=== PATIENT | female | born 1990 | race Caucasian/White ===

== ENCOUNTER 2019-07-21 22:33 | Emergency (ER) | payer MEDICARE, MEDICAID ==
--- OUTSIDE RECORDS SUMMARY | 2019-07-21 22:48 | XMS REPORT ---
:1990 Author Organization [facility] Care Team Providers Name Role Phone Tin Phillips Unavailable Unavailable PROBLEMS Unknown Problems ALLERGIES No Information ENCOUNTERS Encounter Location Date Diagnosis [address] Jun, [phone] Pending Sale To [facility] [address] [place] [address] Jan, [place] [address] Pending Sale To [facility] [address] [place] [address] Jan, [place] [phone] Dec, [phone] Dec, [phone] Pending Sale To [facility] [address] [place] [address] Oct, [place] [address], Oct, [facility] [phone] [place] Oct, [phone] Oct, [phone] August, [phone] Jul, [phone] May, [phone] Mar, [phone] Mar, [address] IMMUNIZATIONS No Known Immunizations SOCIAL HISTORY Never Assessed REASON FOR REFERRAL FUNCTIONAL STATUS PLAN OF CARE VITAL SIGNS MEDICATIONS Unknown Medications PROCEDURES No Known procedures RESULTS No Results REASON FOR VISIT 1st no show Insurance Providers [facility] Health Member Patient Patient Patient Patient Patient Subscriber Subscriber Subscriber Group Insurance Plan Plan Plan Plan ID Relationship Address Phone Name Date of ID Name Date of No Type Insurance Insurance Insurance Coverage to Subscriber Address Phone Name Dates Blue [phone] Blue self Cheryl [id number] Choice Opt [id number] [address] 83 Choice Opt [place] [id number] Thayer Claims [id number] Thayer Hplex [place] Dept Hplex [place] [facility] [address] Medicare National [phone] Medicare self Cheryl [id number] PPS Government 41 PPS [place] [facility] [address] [facility] [id number] Medicaid [id number] Medicaid self Cheryl [id number] [facility] [address] [place] [address] Blue [id number] Blue self Cheryl [id number] Choice Opt [id number] Choice Opt [place] 1 Medical [facility] Medical [address] Medicaid [id number] Medicaid self Cheryl [id number] Wrap [facility] 56 [address] [place] [address]
--- OUTSIDE RECORDS SUMMARY | 2019-07-21 22:48 | XMS REPORT | Continuity of Care Document ---
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 [phone] Problems Active Problems Provider Date Primigravida Ryanne Avalos CNM Onset: 06/01/2019 Body mass index 40+ - severely obese Ryanne Avalos CNM Onset: 06/01/2019 Social History Type Date Description Comments Sex Unknown Tobacco Use Start: Unknown Never Smoked Cigarettes fiance smokes in their bedroom ETOH Use Denies alcohol use Recreational Drug Use Denies Drug Use Tobacco Use Start: Unknown Patient has never smoked Exercise Type/Frequency Exercises regularly 4-5xwk Seat Belt/Car Seat Always uses seat belt Allergies, Adverse Reactions, Alerts Active Allergies Reaction Severity Comments Date Buspar increase depressive symptoms Moderate 05/06/2019 Wellbutrin suicidal ideation 05/06/2019 Inactive Allergies NKDA 01/14/2017 Medications Active Medications SIG Qnty Indications Ordering Date Provider Loratadine 1 by mouth every 60caps Norma Oliva, 06/21/2019 10mg Capsules day CNM Doxylamine 2 tabs by mouth 60tabs Ryanne Avalos, 05/25/2019 Succinate/Pyridoxine at bedtime. if CNM Hydrochloride symptoms persist 10-10mg add [address] morning and 1 midday. Abilify one by mouth Q hs Unknown 2mg Tablets Omeprazole one by mouth Unknown 40mg Capsules daily DR Immunizations Description No Information Available Vital Signs Date Vital Result Comment 05/25/2019 10:29am BP Systolic 122 mmHg BP Diastolic 80 mmHg Height 63 inches 5'3" Weight 250.00 lb BMI (Body Mass Index) 44.3 kg/m2 1 Parity 0 05/05/2019 8:06am BP Systolic 118 mmHg BP Diastolic 76 mmHg Height 63 inches 5'3" Weight 259.00 lb BMI (Body Mass Index) 45.9 kg/m2 Results Test Acquired Date Facility Test Result H/L Range Note Laboratory test 07/11/2019 [facility] Glucose 1 HR 122 mg/dL Normal 70-160 1 [place] [address] Post Prandial [phone] GC/Chlamydia 07/11/2019 [facility] GCCHL (SEE NOTE) 2 [place] [address] Disclaimer [phone] Chlamydia trachomatis Alley Negative Negative Neisseria gonorrhoeae (GC) Alley Negative Negative PNL No 06/13/2019 [facility] Rubella Screen Immune Immune 3 [place] [address] [phone] Hemoglobin A1c 4.9 % Normal 4.0-5.6 4 Hepatitis B Surface Ag Nonreactive Nonreactive 5 Syphillis Igg W/Reflex RPR Negative Negative 6 CBC With No 06/13/2019 [facility] White Blood 10.6 10^3/uL Normal 3.5-10.8 [place] [address] Count [phone] Red Blood Count 4.31 10^6/uL Normal 3.70-4.87 Hemoglobin 12.3 g/dL Normal 12.0-16.0 Hematocrit 37 % Normal 35-47 Mean Corpuscular Volume 87 fL Normal 80-97 Mean Corpuscular Hemoglobin 29 pg Normal 27-31 Mean Corpuscular HGB Conc 33 g/dL Normal 31-36 Red Cell Distribution Width 16 % High 10-15 Platelet Count 300 10^3/uL Normal 150-450 Mean Platelet Volume 10.1 fL Normal 7.4-10.4 Type And Screen 06/13/2019 [facility] [place] [address] [phone] Patient Blood Type A Negative Lead 06/13/2019 [facility] Lead,Venous, B < 1.0 g/dL 0.0- 4.9 7 [place] [address] [phone] Venous/Capillary Venous Submitting Laboratory Phone [phone] HIV 1&2 p24 06/13/2019 [facility] HIV 4th [place] [address] Generation [phone] Urine Culture 05/25/2019 [facility] Urine SEE RESULT 9 [place] [address] Culture BELOW Sensitivities [phone] Laboratory test 05/05/2019 [facility] Cytology SEE RESULT 10 [place] [address] BELOW [phone] GC/Chlamydia Dna 05/05/2019 [facility] GCCHL (SEE NOTE) 11 [place] [address] Disclaimer [phone] Chlamydia trachomatis Alley Negative Negative Neisseria gonorrhoeae (GC) Alley Negative Negative 1 [id number] 2 As with all diagnostic procedures, the laboratory results obtained should be used in conjunction with other clinical information available to the physician, including confirmation by another method, as applicable. 3 [id number] 4 Therapeutic target for the treatment of diabetes mellitus patients is <7% HBA1C, and in selective patients <6.0%. Please refer to [place] Diabetes Association diabetic care guidelines for further information. 5 [id number] 6 [id number] 7 ADDITIONAL INFORMATION Testing performed by Inductively Coupled Plasma-Mass Spectrometry (ICP-MS). This test was developed and its performance characteristics determined by [facility] in a manner consistent with CLIA requirements. This test has not been cleared or approved by the U.S. Food and Drug Administration. 8 Test Performed by: [facility] - [address] [address] Kicking Machine Operator: Trever Brumfield M.D. Ph.D.; CLIA# [id number] 9 SEE RESULT BELOW Name: CHERYL ADAMES : [address]: Ryanne AMES Acct: [id number] Unit: [id number] AGE: 29 Location: [facility] Re05/25/19 SEX: F Status: REG REF SPEC: [id number] CÉSAR: 05/25/19-[address]: Ryanne AMES REQ: [id number] RECD: 05/25/19-1633 STATUS: COMP _ SOURCE: URINE SPDESC: ORDERED: Urine Culture COMMENTS: [id number] Urine Source: Random Procedure Result Reported Site Urine Culture Final 05/27/19- 0908 ML No growth of clinically significant organisms * ML - Main Lab . END OF REPORT DEPARTMENT OF PATHOLOGY, [address] [place] [address] Wai Montilla M.D. Director [facility] # [id number] 10 SEE RESULT BELOW Name: CHERYL ADAMES : [address]: Ryanne Avalos CNM Acct: [id number] Unit: [id number] AGE: 29 Location: [facility] Re05/05/19 SEX: F Status: REG REF SPEC: [id number] CÉSAR: 05/05/19-[address]: Ryanne Avalos [facility] REQ: [id number] RECD: 05/05/19-123 STATUS: SOUT _ ORDERED: TP IMAGE ANALYS COMMENTS: [id number] FINAL DIAGNOSIS Negative for Intraepithelial lesion or Malignancy Shift in amanda suggestive of bacterial vaginosis SPECIMEN(S) RECEIVED A. Ectocervical/Endocervical CYTOLOGY ADEQUACY Specimen Adequacy: Satisfactory of evaluation Transformation zone component identified CYTOLOGY PATIENT INFORMATION Patient Information: HPV: Thin Layer Pap Test w/reflex to high risk HPV RNA testing when ASCUS Actual Specimen Date: 05/05/19 LMP If Unknown: unknown Spec Date if unknown: unknown ?: N Post Menopausal?: N Hysterectomy?: N Previous Abnormal Pap Smears?:N Signed by and Reported on: MYLES Cardoso (ASCP) 1516 This Pap test was evaluated with the assistance of the [employer] Test Imaging System. Due to cytologic findings at the accordion tuner microscope, comprehensive manual rescreening by a Maintenance Shop Clerk may be required. The Pap Smear is a screening test designed to aid in the detection of premalignant and malignant conditions of the uterine cervix. It is not a diagnostic procedure and should not be used as the sole means of detecting cervical cancer. Both false- positive and false- negative reports do occur. Depending on your risk status, a Pap smear should be obtained and evaluated every 1-3 years. CONTINUED ON NEXT PAGE DEPARTMENT OF PATHOLOGY, [address] [place] [address] Wai Montilla M.D. Director [facility] # [id number] 11 As with all diagnostic procedures, the laboratory results obtained should be used in conjunction with other clinical information available to the physician, including confirmation by another method, as applicable. Procedures Date Code Description Status 05/25/2019 52311 OB Ultrasound First Trimester Completed Medical Devices Description No Information Available Encounters Type Date Location Provider Dx Diagnosis Office Visit 05/05/2019 [facility] Office Ryanne Avalos CNM N94.12 Deep dyspareunia 8:15a N92.6 Irregular menstruation, unspecified N97.9 Female infertility, unspecified Assessments Date Code Description Provider 07/11/2019 Z36.9 Encounter for screening, Freida Dunlap MD unspecified 07/11/2019 Z36.9 Encounter for screening, Laboratory unspecified 07/11/2019 O99.212 Obesity complicating , second Harleen Singh CNM trimester 06/13/2019 Z36.9 Encounter for screening, Raisa Phillips MD unspecified 06/13/2019 O99.211 Obesity complicating , first Ryanne Avalos CNM trimester 06/13/2019 Z36.9 Encounter for screening, Laboratory unspecified 06/13/2019 O09.71 Supervision of high risk due to Ryanne Avalos CNM social problems, first trimester 05/25/2019 O99.211 Obesity complicating , first Ryanne Avalos CNM trimester 05/25/2019 O26.91 related conditions, unspecified, Cony Norman MD first trimester 05/25/2019 O26.91 related conditions, unspecified, Ultrasounds first trimester 05/05/2019 N94.12 Deep dyspareunia Ryanne Avalos CNM 05/05/2019 N92.6 Irregular menstruation, unspecified Ryanne Avalos CNM 05/05/2019 N97.9 Female infertility, unspecified Ryanne Avalos CNM Plan of Treatment Future Appointment(s):08/15/2019 11:30 am - Ryanne Avalos CNM at [facility]08/15/2019 11:00 am - Ultrasounds at [facility]09/05/2019 9:30 am - Ryanne Avalos CNM at [facility]05/05/2019 - HUI GongoraMN94.12 Deep dlpprezhctpL78.6 Irregular menstruation, fcbwhiclqqzG75.9 Female infertility, unspecified Functional Status Description No Information Available Mental Status Description No Information Available Referrals Description No Information Available
--- OUTSIDE RECORDS SUMMARY | 2019-07-21 22:48 | XMS REPORT | Continuity of Care Document ---
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 Problems Active Problems Provider Date Primigravida Ryanne [...] Result H/L Range Note Laboratory test 07/11/2019 [facility] Glucose 1 HR <pending> [place] [address] Post Prandial [phone] PNL No 06/13/2019 [facility] Rubella Screen Immune Immune 1 [place] [address] [phone] Hemoglobin A1c 4.9 % Normal 4.0-5.6 2 Hepatitis B Surface Ag Nonreactive Nonreactive 3 Syphillis Igg W/Reflex RPR Negative Negative 4 CBC With No 06/13/2019 [facility] White Blood 10.6 10^3/uL Normal 3.5-10.8 [place] [address] Count [phone] Red Blood Count 4.31 10^6/uL Normal 3.70-4.87 [...] fL Normal 7.4-10.4 Type And Screen 06/13/2019 [facility] Antibody [place] [address] [phone] Patient Blood Type A Negative Lead 06/13/2019 [facility] Lead,Venous, B < 1.0 g/dL 0.0- 4.9 5 [place] [address] [phone] Venous/Capillary Venous Submitting Laboratory Phone [phone] HIV 1&2 p24 06/13/2019 [facility] HIV 4th Nonreactive [place] [address] Generation [phone] Urine Culture 05/25/2019 [facility] Urine SEE RESULT 7 [place] [address] Culture BELOW Sensitivities [phone] Laboratory test 05/05/2019 [facility] Cytology SEE RESULT 8 [place] [address] BELOW [phone] GC/Chlamydia Dna 05/05/2019 [facility] GCCHL (SEE NOTE) 9 [place] [address] Disclaimer [phone] Chlamydia trachomatis Alley Negative Negative Neisseria gonorrhoeae (GC) Alley Negative Negative 1 [id number] 2 Therapeutic target for the treatment of diabetes mellitus patients is <7% HBA1C, and in selective patients <6.0%. Please refer to [place] Diabetes Association diabetic care guidelines for further information. 3 [id number] 4 [id number] 5 ADDITIONAL INFORMATION Testing performed by Inductively Coupled Plasma-Mass Spectrometry (ICP-MS). This test was developed and its performance characteristics determined by [facility] in a manner consistent with CLIA requirements. This test has not been cleared or approved by the U.S. Food and Drug Administration. 6 Test Performed by: [facility] [address] [place] [address] Berry Picker: Trever Brumfield M.D. Ph.D.; CLIA# [id number] 7 SEE RESULT BELOW Name: CHERYL ADAMES : [address]: Ryanne Avalos [facility] Acct: [id number] Unit: [id number] AGE: 29 Location: [facility] Re05/25/19 SEX: F Status: REG REF SPEC: [id number] CÉSAR: 05/25/19-[address]: Ryanne AMES REQ: [id number] RECD: 05/25/19 STATUS: COMP _ SOURCE: URINE SPDESC: ORDERED: Urine Culture COMMENTS: [id number] Urine Source: Random Procedure Result Reported Site Urine Culture Final 05/27/19- 0908 ML No growth of clinically significant organisms * ML - Main Lab . END OF REPORT DEPARTMENT OF PATHOLOGY, [address] [place] [address] Wai Montilla M.D. Director [facility] # [id number] 8 SEE RESULT BELOW Name: CHERYL ADAMES : [address]: Ryanne Avalos CNM Acct: [id number] Unit: [id number] AGE: 29 Location: [facility] Re05/05/19 SEX: F Status: REG REF SPEC: [id number] CÉSAR: 05/05/19-09[address] [facility] [address]: Ryanne Avalos [facility] REQ: [id number] RECD: 05/05/19-1233 STATUS: SOUT _ ORDERED: TP IMAGE ANALYS COMMENTS: [id number] FINAL DIAGNOSIS Negative for Intraepithelial lesion or [...] was evaluated with the assistance of the [employer] Test Imaging System. Due to cytologic findings at the school childcare attendant microscope, comprehensive manual rescreening by a Process Steward may be required. The Pap Smear is [...] CONTINUED ON NEXT PAGE DEPARTMENT OF PATHOLOGY, [address] [place] [address] Wai Montilla M.D. Director [facility] # [id number] 9 As with all diagnostic procedures, the laboratory results obtained should be used in conjunction with other clinical information available to the physician, including confirmation by another method, as applicable. Procedures Date Code Description Status 05/25/2019 92197 OB Ultrasound First Trimester Completed Medical Devices Description No Information Available Encounters Type Date Location Provider Dx Diagnosis Office Visit 05/05/2019 [facility] Ryanne Avalos CNM N94.12 Deep dyspareunia 8:15a N92.6 Irregular menstruation, unspecified N97.9 Female infertility, unspecified Assessments Date Code Description Provider 07/11/2019 Z36.9 Encounter for screening, Laboratory unspecified 07/11/2019 O99.212 Obesity complicating , second Harleen Singh, WONG trimester 06/13/2019 Z36.9 Encounter for screening, Raisa [...] Ryanne Avalos CNM Plan of Treatment Future Appointment(s):09/05/2019 9:30 am - Ryanne Avalos CNM at [facility]08/08/2019 11:00 am - Norma Oliva CNM at [facility]08/08/2019 10:30 am - Ultrasounds at [facility]05/05/2019 - HUI GongoraMN94.12 Deep hbnmigfqjxbC73.6 Irregular menstruation, emuobotklhdG19.9 Female infertility, unspecified Functional Status Description No Information Available Mental Status Description No Information Available Referrals Description No Information Available
--- OUTSIDE RECORDS SUMMARY | 2019-07-21 22:48 | XMS REPORT | Continuity of Care Document ---
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 Problems Active Problems Provider Date Primigravida Ryanne [...] Result H/L Range Note Laboratory test 07/11/2019 [facility] Glucose 1 HR 122 mg/dL Normal 70-160 1 [place] [address] Post Prandial [phone] GC/Chlamydia 07/11/2019 [facility] GCCHL (SEE NOTE) 2 [place] [address] Disclaimer [phone] Chlamydia trachomatis Alley Negative Negative Neisseria gonorrhoeae (GC) Alley Negative Negative PNL No 06/13/2019 [facility] Rubella Screen Immune Immune 3 [place] [address] [phone] Hemoglobin A1c 4.9 % Normal 4.0-5.6 4 Hepatitis B Surface Ag Nonreactive Nonreactive 5 Syphillis Igg W/Reflex RPR Negative Negative 6 CBC With No 06/13/2019 [facility] White Blood 10.6 10^3/uL Normal 3.5-10.8 [place] [address] Count [phone] Red Blood Count 4.31 10^6/uL Normal 3.70-4.87 [...] fL Normal 7.4-10.4 Type And Screen 06/13/2019 [facility] Antibody [place] [address] [phone] Patient Blood Type A Negative Lead 06/13/2019 [facility] Lead,Venous, B < 1.0 g/dL 0.0- 4.9 7 [place] [address] [phone] Venous/Capillary Venous Submitting Laboratory Phone [phone] HIV 1&2 p24 06/13/2019 [facility] HIV 4th Nonreactive [place] [address] Generation [phone] Urine Culture 05/25/2019 [facility] Urine SEE RESULT 9 [place] [address] Culture BELOW Sensitivities [phone] Laboratory test 05/05/2019 [facility] Cytology SEE RESULT 10 [place] [address] BELOW [phone] GC/Chlamydia Dna 05/05/2019 [facility] GCCHL (SEE NOTE) [address] [place] [address] Disclaimer [phone] Chlamydia trachomatis Alley Negative Negative Neisseria gonorrhoeae (GC) Alley Negative Negative 1 [id number] 2 As with all diagnostic procedures, the laboratory results obtained should be used in conjunction with other clinical information available to the physician, including confirmation by another method, as applicable. 3 [id number] 4 Therapeutic target for the treatment of diabetes mellitus patients is <7% HBA1C, and in selective patients <6.0%. Please refer to [place] Diabetes Association diabetic care guidelines for further information. 5 [id number] 6 [id number] 7 ADDITIONAL INFORMATION Testing performed by Inductively Coupled Plasma-Mass Spectrometry (ICP-MS). This test was developed and its performance characteristics determined by [facility] in a manner consistent with CLIA requirements. This test has not been cleared or approved by the U.S. Food and Drug Administration. 8 Test Performed by: [facility] - [address] [address] Assembly Line Driver: Trever Brumfield M.D. Ph.D.; CLIA# [id number] 9 SEE RESULT BELOW Name: CHERYL ADAMES : [address]: Ryanne Avalos [facility]: [id number] Unit: [id number] AGE: 29 Location: [facility] Re05/25/19 SEX: F Status: REG REF SPEC: [id number] CÉSAR: 05/25/19-[address]: Ryanne Avalos [facility] REQ: [id number] RECD: 05/25/19-1633 STATUS: COMP _ SOURCE: URINE SPDESC: ORDERED: Urine Culture COMMENTS: [id number] Urine Source: Random Procedure Result Reported Site Urine Culture Final 05/27/19- 0908 ML No growth of clinically significant organisms * - Main Lab . END OF REPORT DEPARTMENT OF PATHOLOGY, [address] [place] [address] Wai Montilla M.D. Director [facility] # [id number] 10 SEE RESULT BELOW Name: CHERYL ADAMES : [address]: Ryanne Avalos CNM Acct: [id number] Unit: [id number] AGE: 29 Location: [facility] Re05/05/19 SEX: F Status: REG REF SPEC: [id number] CÉSAR: 05/05/19-[address] [facility] [address]: Ryanne Avalos CNM REQ: [id number] RECD: 05/05/19-1233 STATUS: SOUT _ ORDERED: TP IMAGE ANALYS COMMENTS: [id number] FINAL DIAGNOSIS Negative for Intraepithelial lesion or [...] was evaluated with the assistance of the [employer] Test Imaging System. Due to cytologic findings at the nutrition director microscope, comprehensive manual rescreening by a Investment Banking Analyst may be required. The Pap Smear is [...] CONTINUED ON NEXT PAGE DEPARTMENT OF PATHOLOGY, [address] [place] [address] Wai Montilla M.D. Director [facility] # [id number] 11 As with all diagnostic procedures, the laboratory results obtained should be used in conjunction with other clinical information available to the physician, including confirmation by another method, as applicable. Procedures Date Code Description Status 05/25/2019 11248 OB Ultrasound First Trimester Completed Medical Devices Description No Information Available Encounters Type Date Location Provider Dx Diagnosis Office Visit 05/05/2019 [facility] Office Ryanne Avalos CNM N94.12 Deep [...] - Ryanne Avalos CNM at [facility]08/15/2019 11:00 am - Ultrasounds at [facility]09/05/2019 9:30 am - Ryanne Avalos CNM at [facility]05/05/2019 - HUI GongoraMN94.12 Deep tvjhbdaiqidH30.6 Irregular menstruation, ouqtjomnjlwX46.9 Female infertility, unspecified Functional Status Description No Information Available Mental Status Description No Information Available Referrals Description No Information Available
--- OUTSIDE RECORDS SUMMARY | 2019-07-21 22:48 | XMS REPORT | Continuity of Care Document ---
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[employer] Problems Active Problems Provider Date Primigravida Ryanne [...] Date Facility Test Result H/L Range Note PNL No 06/13/2019 [facility] Rubella Screen Immune Immune 1 [place] [address] [phone] Hemoglobin A1c 4.9 % Normal 4.0-5.6 2 Hepatitis B Surface Ag Nonreactive Nonreactive 3 Syphillis Igg W/Reflex RPR Negative Negative 4 CBC With No 06/13/2019 [facility] White Blood 10.6 10^3/uL Normal 3.5-10.8 [place] [address] Count [phone] Red Blood Count 4.31 10^6/uL Normal 3.70-4.87 [...] fL Normal 7.4-10.4 Type And Screen 06/13/2019 [facility] [place] [address] [phone] Patient Blood Type A Negative Lead 06/13/2019 [facility] Lead,Venous, B < 1.0 g/dL 0.0- 4.9 5 [place] [address] [phone] Venous/Capillary Venous Submitting Laboratory Phone [phone] HIV 1&2 p24 06/13/2019 [facility] HIV 4th [place] [address] Generation [phone] Urine Culture 05/25/2019 [facility] Urine SEE RESULT [address] [place] [address] Culture BELOW Sensitivities [phone] Laboratory test 05/05/2019 [facility] Cytology SEE RESULT [address] [place] [address] BELOW [phone] GC/Chlamydia Dna 05/05/2019 [facility] (SEE NOTE) [address] [place] [address] Disclaimer [phone] Chlamydia trachomatis Alley Negative Negative Neisseria gonorrhoeae (GC) Alley Negative Negative 1 [id number] 2 Therapeutic target for the treatment of diabetes mellitus patients is <7% HBA1C, and in selective patients <6.0%. Please refer to [place] [employer] diabetic care guidelines for further information. 3 [id number] 4 [id number] 5 ADDITIONAL INFORMATION Testing performed by Inductively Coupled Plasma-Mass Spectrometry (ICP-MS). This test was developed and its performance characteristics determined by [facility] in a manner consistent with CLIA requirements. This test has not been cleared or approved by the U.S. Food and Drug Administration. 6 Test Performed by: [facility] [place] [address] Carton Filling Machine Operator: Trever Brumfield M.D. Ph.D.; CLIA# [id number] 7 SEE RESULT BELOW Name: PAULINE ADAMESNEY : [address]: Ryanne Avalos [facility] Acct: [id number] Unit: [id number] AGE: 29 Location: [facility] Re05/25/19 SEX: F Status: REG REF SPEC: [id number] CÉSAR: 05/25/19-[address]: Ryanne Avalos CNM REQ: [id number] RECD: 05/25/19 STATUS: COMP _ SOURCE: URINE SPDESC: ORDERED: Urine Culture COMMENTS: [id number] Urine Source: Random Procedure Result Reported Site Urine Culture Final 05/27/19- 09 ML No growth of clinically significant organisms * ML - Main Lab . END OF REPORT DEPARTMENT OF PATHOLOGY, [address] [place] [address] Wai Montilla M.D. Director [facility] # [id number] 8 SEE RESULT BELOW Name: CHERYL ADAMES : [address]: Ryanne Avalos CNM Acct: [id number] Unit: [id number] AGE: 29 Location: [facility] Re05/05/19 SEX: F Status: REG REF SPEC: [id number] CÉSAR: 05/05/19-0950 [facility] DR: Ryanne Avalos [facility] REQ: [id number] RECD: 05/05/19-1233 STATUS: SOUT _ ORDERED: TP IMAGE ANALYS COMMENTS: [id number] FINAL DIAGNOSIS Negative for Intraepithelial lesion or [...] was evaluated with the assistance of the moblip Test Imaging System. Due to cytologic findings at the review coordinator microscope, comprehensive manual rescreening by a [place] Repairer may be required. The Pap Smear is [...] CONTINUED ON NEXT PAGE DEPARTMENT OF PATHOLOGY, [address] [place] [address] Wai Montilla M.D. Director [facility] # [id number] 9 As with all diagnostic procedures, the laboratory results obtained should be used in conjunction with other clinical information available to the physician, including confirmation by another method, as applicable. 

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
[2019-07-21 23:32] VITALS: BP 121/82
== END 2019-07-21 23:25 | disposition home or self-care (01) ==
LOC: ED 22:33
DX: O26.892 Other specified pregnancy related conditions, second trimester (principal); R10.13 Epigastric pain; Z3A.17 17 weeks gestation of pregnancy
CPT/HCPCS: 99282

== ENCOUNTER 2019-12-03 17:54 | Inpatient (IN) ==
[2019-12-03] MEDS ORDERED: Dinoprostone 10 MG VAG.SUPP VAGINAL ONE (18:28)
[2019-12-03] MEDS ORDERED: Lactated Ringers 1000 ml BAG 1,000 ML IV SCH (19:00)
[2019-12-03 19:37] LABS: Urine Benzodiazepine Screen None Detected (None Detect); Urine Cannabinoids Screen None Detected (None Detect); Urine Opiates Screen None Detected (None Detect)
[2019-12-03 20:15] LABS: ABS Eosinophils 0.2 10^3/ul (0-0.6); ABS Lymphocytes 2.2 10^3/ul (1.0-4.8); ABS Monocytes 0.7 10^3/ul (0-0.8); ABS Neutrophils 9.2 10^3/ul (1.5-7.7); Eosinophil % 1.7 %; Hematocrit 32 % (35-47); Hemoglobin 11.2 g/dL (12.0-16.0); Lymphocyte % 17.8 %; Mean Corpuscular HGB Conc 34 g/dL (31-36); Mean Corpuscular Hemoglobin 29 pg (27-31); Mean Corpuscular Volume 85 fL (80-97); Mean Platelet Volume 9.6 fL (7.4-10.4); Platelet Count 270 10^3/uL (150-450); Red Blood Count 3.81 10^6 /uL (3.70-4.87); Red Cell Distribution Width 16 % (10-15); White Blood Count 12.2 10^3/uL (3.5-10.8)
[2019-12-03 20:30] LABS: Albumin 3.7 g/dL (3.2-5.2); Albumin/Globulin Ratio 1.1 (1-3); BUN/Creatinine Ratio 15.9 (8-20); Calcium 9.3 mg/dL (8.6-10.3); EGFR African American 100.4 (>60); Globulin 3.5 g/dL (2-4); Potassium 3.5 mmol/L (3.5-5.0); Total Bilirubin 0.4 mg/dL (0.2-1.0); Total Protein 7.2 g/dL (6.4-8.9)
[2019-12-03] MEDS ORDERED: Promethazine INJ(RESTRICTED) 25 MG/ML 1 ml VIAL IV ONE (23:40)
[2019-12-03] MEDS ORDERED: Morphine 10 MG/ML VIAL (1 ml) IV ONE (23:40)
[2019-12-04 00:47] LABS: Urine Appearance Cloudy; Urine Bilirubin Negative (Negative); Urine Blood Negative (Negative); Urine Color Yellow; Urine Glucose Negative (Negative); Urine Ketones Negative (Negative); Urine Nitrite Negative (Negative); Urine Protein Negative (Negative); Urine Specific Gravity 1.021 (1.010-1.030); Urine Urobilinogen Positive (Negative)
[2019-12-04] MEDS: Lactated Ringers 1000 ml BAG 1,000 ML IV ONE (21:40)
[2019-12-04] MEDS: Omeprazole 20 mg CAP (NF) PO PRN (23:24)
[2019-12-05] MEDS: Lactated Ringers 1000 ml BAG 1,000 ML IV ONE (01:42)
[2019-12-05] MEDS ORDERED: Morphine 10 MG/ML VIAL (1 ml) IV ONE (02:01)
[2019-12-05] MEDS ORDERED: Promethazine INJ(RESTRICTED) 25 MG/ML 1 ml VIAL IV PRN (02:02)
[2019-12-05] MEDS ORDERED: Dinoprostone 10 MG VAG.SUPP VAGINAL ONE (07:45)
[2019-12-06] MEDS: Omeprazole 20 mg CAP (NF) PO PRN (07:29)
[2019-12-07] MEDS ORDERED: diPHENhydraMINE IV 50 MG/ML 1 ml VIAL (BENADRYL) IV ONE (21:55)
[2019-12-07] MEDS ORDERED: diPHENhydraMINE IV 50 MG/ML 1 ml VIAL (BENADRYL) ONE (22:06)
[2019-12-08] MEDS: Omeprazole 20 mg CAP (NF) PO PRN (10:07)
[2019-12-08 10:25] LABS: ABS Eosinophils 0.2 10^3/ul (0-0.6); ABS Lymphocytes 1.6 10^3/ul (1.0-4.8); ABS Monocytes 0.6 10^3/ul (0-0.8); ABS Neutrophils 8.6 10^3/ul (1.5-7.7); Eosinophil % 2.1 %; Hematocrit 34 % (35-47); Hemoglobin 11.7 g/dL (12.0-16.0); Lymphocyte % 14.6 %; Mean Corpuscular HGB Conc 35 g/dL (31-36); Mean Corpuscular Hemoglobin 30 pg (27-31); Mean Corpuscular Volume 85 fL (80-97); Mean Platelet Volume 10.2 fL (7.4-10.4); Nucleated Red Blood Cells % 0.1; Platelet Count 230 10^3/uL (150-450); Red Blood Count 3.95 10^6 /uL (3.70-4.87); Red Cell Distribution Width 16 % (10-15)
[2019-12-08 10:37] LABS: Albumin 3.5 g/dL (3.2-5.2); Calcium 9.5 mg/dL (8.6-10.3); Potassium 3.8 mmol/L (3.5-5.0); Total Bilirubin 0.3 mg/dL (0.2-1.0)
[2019-12-08 10:43] LABS: BUN/Creatinine Ratio 14.3 (8-20); EGFR African American 120.6 (>60); EGFR Non-African American 99.6 (>60); Globulin 3.4 g/dL (2-4); Total Protein 6.9 g/dL (6.4-8.9)
[2019-12-08] MEDS ORDERED: OBEPIDURAL 250 ML EPIDURAL ONE (10:43)
[2019-12-08] MEDS ORDERED: Phenylephrine 40 mcg/mL 10mL (400mcg) SYRINGE IV PUSH PRN ×2 (12:00)
[2019-12-08] MEDS ORDERED: OBEPIDURAL 250 ML EPIDURAL SCH (12:00)
[2019-12-08] MEDS ORDERED: Sodium Citrate/Citric Acid LIQ 15 ML UDC PO PRN (12:00)
[2019-12-08] MEDS ORDERED: Lactated Ringers 1000 ml BAG 1,000 ML IV SCH ×2 (12:00)
[2019-12-08] MEDS ORDERED: Lactated Ringers 1000 ml BAG 1,000 ML IV ONE (12:00)
[2019-12-08] MEDS ORDERED: EPHEDrine (Pressors) 50 MG/ML VIAL IV PUSH PRN ×2 (12:00)
[2019-12-08] MEDS ORDERED: Lactated Ringers 500 ml BAG 500 ML IV PRN (12:00)
[2019-12-08] MEDS ORDERED: Oxytocin in LR 20 UNITS/1,000 ML BAG IVPB SCH (14:00)
[2019-12-08] MEDS: Ondansetron 4 mg VIAL 2 MG/ML 2 ml VIAL IV PRN (21:13)
[2019-12-09] MEDS: Omeprazole 20 mg CAP (NF) PO PRN (10:04)
[2019-12-09] MEDS: Ondansetron 4 mg VIAL 2 MG/ML 2 ml VIAL IV PRN (10:41)
[2019-12-09] MEDS ORDERED: D5NS 0.9% 1000 ml BAG 1,000 ML IV SCH (11:00)
[2019-12-09] MEDS: Ampicillin ADVAN 2 GM in NS 0.9% 100 ml BAG 100 ML IVPB SCH ×2 (12:45→18:39)
[2019-12-09] MEDS ORDERED: Gentamicin ADULT 400 MG in NS 0.9% 100 ml BAG 100 ML IVPB SCH (13:00)
[2019-12-09] MEDS ORDERED: RHO D Immune Globulin (HUMAN) 300 MCG = 1,500 I.U. INJ IM ONE (13:31)
[2019-12-09] MEDS ORDERED: Witch Hazel PAD JAR TOPICAL PRN (13:31)
[2019-12-09] MEDS ORDERED: Lactated Ringers 1000 ml BAG 1,000 ML IV SCH (14:00)
[2019-12-09] MEDS ORDERED: Oxytocin in LR 20 UNITS/1,000 ML BAG IVPB SCH (14:00)
[2019-12-09] MEDS: Dibucaine 1% OINT 28.35 GM TUBE PR PRN (14:34)
[2019-12-09] MEDS ORDERED: Lidocaine 1% VIAL 10 MG/ML VIAL ONE (19:31)
[2019-12-10 08:16] LABS: ABS Eosinophils 0.1 10^3/ul (0-0.6); ABS Lymphocytes 0.5 10^3/ul (1.0-4.8); ABS Monocytes 0.7 10^3/ul (0-0.8); ABS Neutrophils 12.8 10^3/ul (1.5-7.7); Eosinophil % 0.4 %; Hematocrit 28 % (35-47); Hemoglobin 9.8 g/dL (12.0-16.0); Lymphocyte % 3.8 %; Mean Corpuscular HGB Conc 35 g/dL (31-36); Mean Corpuscular Hemoglobin 29 pg (27-31); Mean Corpuscular Volume 85 fL (80-97); Mean Platelet Volume 9.8 fL (7.4-10.4); Platelet Count 155 10^3/uL (150-450); Red Blood Count 3.32 10^6 /uL (3.70-4.87); Red Cell Distribution Width 16 % (10-15); White Blood Count 14.1 10^3/uL (3.5-10.8)
[2019-12-10] MEDS: Dibucaine 1% OINT 28.35 GM TUBE PR PRN (09:36)
[2019-12-11 08:53] VITALS: BP 108/68
[2019-12-11] MEDS ORDERED: medroxyPROGESTERone ACETATE 150 MG/ML VIAL IM ONE (10:44)
== END 2019-12-11 18:25 | disposition home or self-care (01) | DRG 807 ==
LOC: MCHOBOUT 17:54 → MCHOB 18:02
PROVIDERS: ADMIT Obstetrics & Gynecology; ATTEND Obstetrics & Gynecology